=== PATIENT | male | born 1950 | race Caucasian/White ===

== ENCOUNTER 2016-09-27 11:41 | Observation (INO) ==
[2016-09-27 13:29] VITALS: BMI 29.5
[2016-09-27 13:30] VITALS: BP 171/87; PULSE 84; O2SAT 97
[2016-09-27 13:59] VITALS: RESP 18
[2016-09-27] MEDS ORDERED: ACETAMINOPHEN 325 MG TABLET PO PRN (14:19)
[2016-09-27] MEDS ORDERED: Bisacodyl EC TAB 5 MG TABLET PO PRN (14:19)
[2016-09-27] MEDS ORDERED: DOCUSATE SODIUM 100 MG CAPSULE PO PRN (14:19)
[2016-09-27] MEDS ORDERED: SENNA + DOCUSATE TABLET PO PRN (14:19)
[2016-09-27] MEDS ORDERED: ONDANSETRON 4 MG/2 ML INJECTION IVP PRN (14:19)
[2016-09-27] MEDS ORDERED: D5-1/2NS 1,000 ML IV SCH (14:45)
--- NOTE | 2016-09-27 16:52 | Cardiology History & Physical ---
History of Present Illness Chief complaint: Chest pain with EKG abnormalities HPI: This is a 66 y/o male who was brought in today from [facility] d/t CP with EKG changes. Pt states that he has never had any CP. States that around 0700 this AM he woke and was light-headed & dizzy with some blurred vision & diaphoresis. States he had some vertigo back in March r/t some nerve damage d/ t a back injury but that this was different. Denies any SOA, palpitations, N/V. States that he tried laying down to see if his symptoms improved and once he tried to get up and lost his balance his brought him into the ER. States h/ o AFIB from 22 years ago for which he has been on digoxin and a baby ASA. While in ER work-up was completed and RN states first troponin negative, CXR unremarkable, CT-chest unremarkable and EKG shows RBBB which is new from EKG in March. 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 States that his dig level was checked in the ER and was WNL. Denies any h/o HTN, CAD, h/o smoking/tobacco use. States last lipid panel in April was WNL. Pt does state that he was dx with NIDDM in March of this year and was started on metformin. Review of Systems - Constitutional Constitutional: Absent: chills, fatigue, fever(s), weakness - EENMT Eyes: Present: blurry vision. Absent: loss of vision Balance: Present: vertigo - Cardiovascular Cardiovascular: Absent: chest pain, palpitations, edema Cardiovascular Comments: near syncope - Respiratory Respiratory: Absent: cough, dyspnea, dyspnea on exertion, wheezing - Gastrointestinal Gastrointestinal: Absent: abdominal pain, constipation, nausea, vomiting - Genitourinary Genitourinary: Absent: difficulty urinating, dysuria, urinary frequency - Musculoskeletal Musculoskeletal: Present: back pain. Absent: abnormal gait, muscle weakness - Neurological Neurological: Present: dizziness, vertigo. Absent: confusion, weakness - Psychiatric Psychiatric: Absent: anxiety, depression PFS Patient Stated Medical History Peripheral Neuropathy Yes: fromconcussion Cataracts Yes: had surgery Cardiac Arrhythmia Yes: afib Diabetes Mellitus Type 2 Yes Medical History Updates: NIDDM. AFIB. 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 Surgical History: Abdominal hernia repair December & January 2016 Family History: No known CAD - Social History Smoking status: Never smoker Medications Home Medications Medication Instructions Recorded Confirmed Type Aspirin 81 mg PO DAILY #0 10/31/11 09/27/16 History Digoxin 250 mcg PO DAILY #0 10/31/11 09/27/16 History Garlic [Garlic Oil] 1,000 mg PO DAILY #0 10/31/11 09/27/16 History Multivitamin W-Minerals/Lutein 1 each PO DAILY #0 10/31/11 09/27/16 History (Centrum Silver Ultra Men's Tab) [place]-3 Fatty Acids/Fish Oil (Fish 1 each PO DAILY #0 10/31/11 09/27/16 History Oil 1,200 Mg Softgel) Metformin PO DAILY 09/27/16 History Allergies Allergy/AdvReac Type Severity Reaction Status Date / Time No Known Allergies Allergy Verified 09/27/16 13:27 Exam Vital signs: Pulse Rate 84 09/27/16 16:02 Respiratory Rate 18 09/27/16 13:30 Blood Pressure 171/87 H 09/27/16 13:30 Pulse Oximetry 97 09/27/16 13:30 Oxygen Delivery Method Room Air - Constitutional no acute distress, cooperative - Routine HEENT Exam Head: Present: normocephalic Eye: Present: EOMI ENT: Present: mucous membranes moist - Routine Neck Exam Present: JVD. Absent: carotid bruit, lymphadenopathy - Routine Respiratory Exam Present: CTA bilaterally. Absent: dyspnea, respiratory distress, wheezes - Routine Cardiovascular Exam Present: RRR, no murmur. Absent: gallop, rubs, JVD - Routine Abdominal Exam Present: soft, normoactive bowel sounds, non distended - Routine Extremities Exam Present: no edema, non tender, pulses intact - Routine Back/Spine/Pelvis Exam Back/Spine: Present: full ROM - Routine Skin Exam Present: intact, dry, warm. Absent: wounds, rash - Routine Neurological Exam Present: alert, oriented X3 - Routine Psychiatric Exam Present: normal affect, normal thought process, cooperative Results Intake and Output 09/27/16 09/27/16 09/27/16 06:59 14:59 22:59 Other: Weight 101.3 kg Patient Weight 09/28/16 06:59 Weight 101.3 kg Lab from [facility]: CBC: Wbc 6.7, Hgb 15.5, Hct 43.7, Plt 272 BMP: Na+ 139, K+ 4.1, Chl 102, CO2 27, BUN 16, Flag Car Driver 0.95, Glucose 122 - Imaging and Cardiology EKG results: report reviewed - EKG Interpretation EKG: sinus rhythm (w/RBBB) EKG interpretations - EKG EKG results cardiology: sinus rhythm Hospital Course This is a general summary of the patient's hospital course. For more details refer to the complete medical record. Time spent with patient: 25 - 35 minutes DVT Prophylaxis: SCD's Assessment and Plan (1) Dizziness Problem details: Dizziness resolved since this AM. Mag WNL at 2.2 as well as TSH at 1.01. Remains NSR 70-80's on tele. reviewed EKG which showed RBBB & ECHO which was unremarkable. Will place Holter monitor at f/u appointment. Instructed to stay out of heat and stay hydrated. Status: Acute NSR HR 70-80's. Negative CP. Troponin x1 negative. Othostatic BP's negative. Electrolytes WNL. Dig level 0.42. Will keep NPO until 2nd troponin result.Check TSH & Mag. (2) HTN (hypertension) Problem details: BP remains elevated. Start Norvasc 5mg daily. First dose now and script sent to pharmacy. Pt to bring BP diary to f/u appointment. Status : Acute BP elevated with SBP 160's. Pt denies any h/o HTN. Will con't to monitor. (3) Chronic a-fib Problem details: Con't digoxin and baby ASA. Will place a holter monitor at f/u appointment. Status: Chronic Currently in NSR. States has remained in NSR since first dx 22 years ago. Con't current digoxin and 81mg ASA. Monitor on tele. (4) Diabetes mellitus Problem details: Resume Metformin. PCP tin. Status: Chronic BG 86. Ordered D5 1/2 while NPO. Monitor BG. Will resume metformin once resume PO intake. - Attestation Attestation Narrative: 10/01/16 09:47 Recommendation After examining the patient I agree with the above assessment. I am involved in the formulation of the patient's plan of care. Sepsis Assessment - Evaluation Sepsis screening result: No Definite Risk
[2016-09-27] MEDS ORDERED: AMLODIPINE 5 MG TABLET PO SCH (17:26)
--- NOTE | 2016-09-27 18:00 | Discharge Summary ---
<Yasemin Kulkarni R - Last Filed: 09/30/16 11:58> Discharge Information Date of admission: 09/27/16 13:15 Anticipated date of discharge: 09/27/16 Attending Physician: Domingo Meade MD Primary care physician: Arpan Ley Consults: None - Discharge Diagnosis (1) Dizziness Problem Details: Dizziness resolved since this AM. Mag WNL at 2.2 as well as TSH at 1.01. Remains NSR 70-80's on tele. reviewed EKG which showed RBBB & ECHO which was unremarkable. Will place Holter monitor at f/u appointment. Instructed to stay out of heat and stay hydrated. Status: Acute (2) Chronic a-fib Problem Details: Con't digoxin and baby ASA. Will place a holter monitor at f/u appointment. Status: Chronic (3) Diabetes mellitus Problem Details: Resume Metformin. PCP manges. Status: Chronic (4) HTN (hypertension) Problem Details: BP remains elevated. Start Norvasc 5mg daily. First dose now and script sent to pharmacy. Pt to bring BP diary to f/u appointment. Status : Acute History of Present Illness HPI: 09/30/16 11:58 This is a 66 y/o male who was brought in today from [facility] d/t CP with EKG changes. Pt states that he has never had any CP. States that around 0700 this AM he woke and was light-headed & dizzy with some blurred vision & diaphoresis. States he had some vertigo back in March r/t some nerve damage d/ t a back injury but that this was different. Denies any SOA, palpitations, N/V. States that he tried laying down to see if his symptoms improved and once he tried to get up and lost his balance his brought him into the ER. States h/ o AFIB from 22 years ago for which he has been on digoxin and a baby ASA. While in ER work-up was completed and RN states first troponin negative, CXR unremarkable, CT-chest unremarkable and EKG shows RBBB which is new from EKG in March. 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 States that his dig level was checked in the ER and was WNL. Denies any h/o HTN, CAD, h/o smoking/tobacco use. States last lipid panel in April was WNL. Pt does state that he was dx with NIDDM in March of this year and was started on metformin. Hospital Course This is a general summary of the patient's hospital course. For more details refer to the complete medical record. Time spent with patient: 25 - 35 minutes DVT Prophylaxis: SCD's Exam Vital signs: Pulse Rate 84 09/27/16 16:02 Respiratory Rate 18 09/27/16 13:30 Blood Pressure 171/87 H 09/27/16 13:30 Pulse Oximetry 97 09/27/16 13:30 Oxygen Delivery Method Room Air - Constitutional no acute distress, well developed, cooperative - Routine HEENT Exam Head: Present: normocephalic Eye: Present: EOMI ENT: Present: mucous membranes moist - Routine Neck Exam Absent: JVD, carotid bruit, lymphadenopathy - Routine Respiratory Exam Present: CTA bilaterally. Absent: dyspnea, respiratory distress, wheezes, crackles - Routine Cardiovascular Exam Present: RRR, no murmur. Absent: gallop, rubs, JVD - Routine Abdominal Exam Present: soft, normoactive bowel sounds, non distended - Routine Extremities Exam Present: no edema, non tender, full ROM, pulses intact - Routine Back/Spine/Pelvis Exam Back/Spine: Present: full ROM - Routine Skin Exam Present: intact, dry, warm. Absent: wounds, rash - Routine Neurological Exam Present: alert, oriented X3 - Routine Psychiatric Exam Present: normal affect, normal thought process, cooperative, good judgment Results Cardiac Enzymes 09/27/16 Range/Units 16:23 Troponin I < 0.012 (0-0.12) ng/ml Intake and Output 09/27/16 09/27/16 09/27/16 06:59 14:59 22:59 Output Total 350 / 350 Balance -350 / -350 Output: Urine 350 / 350 Other: Weight 101.3 kg Patient Weight 09/28/16 06:59 Weight 101.3 kg TSH 1.01 Mag 2.2 - Imaging and Cardiology Echo: report reviewed Imaging & Cardiology Narrative: 09/30/16 12:05 Date of Exam: 09/27/16 Type of Exam(s): US echo doppler complete DATE OF PROCEDURE September 27, 2016 This is a two-dimensional echo with spectral Doppler, color-flow and M-mode. It was obtained in a patient with abnormal EKG. Left atrial dimension is normal. Left ventricular end-diastolic dimension is normal. Left ventricular wall thickness is normal. LV systolic function is normal with ejection fraction of 63%. Right atrium is normal. Right ventricle is normal. Aortic root dimension is normal. Mitral, aortic, tricuspid, and pulmonary valves are morphologically normal with trace of mitral and trace of tricuspid regurgitation with normal estimated pulmonary artery systolic pressure of 27. Pulmonary valve shows no pulmonary insufficiency. There is no pericardial effusion. IMPRESSION 1. Normal LV systolic function with ejection fraction of 63%. 2. Trace of mitral regurgitation. 3. Trace of tricuspid regurgitation with normal estimated pulmonary artery systolic pressure of 27. Discharge Plan - Med Rec/Dispo Referrals/Follow Up: Domingo Meade MD [Physician] - 2 Weeks (F/u in 2 weeks for holter monitor and with BP journal.) [place] Instructions: Angina (DC) Additional Instructions: Take your BP a few times every week and write them down and take with you to your appointment in 2 weeks. Prescriptions: New Amlodipine [Norvasc] 5 mg PO DAILY #30 tablet Continue Digoxin 250 mcg PO DAILY #0 Multivitamin W-Minerals/Lutein (Centrum Silver Ultra Men's Tab) 1 each PO DAILY #0 Aspirin 81 mg PO DAILY #0 [place]-3 Fatty Acids/Fish Oil (Fish Oil 1,200 Mg Softgel) 1 each PO DAILY #0 Garlic [Garlic Oil] 1,000 mg PO DAILY #0 Metformin PO DAILY Discharge Instructions/Outpatient Orders: Final Provider Discharge Instructions Location: Determined By Patient - Disposition 01 Discharged Home, Self-Care <Domingo Meade - Last Filed: 10/01/16 09:48> Discharge Information Date of admission: 09/27/16 13:15 Attending Physician: Domingo Meade MD Primary care physician: Arpan Ley - Discharge Diagnosis (1) Dizziness Problem Details: Dizziness resolved since this AM. Mag WNL at 2.2 as well as TSH at 1.01. Remains NSR 70-80's on tele. reviewed EKG which showed RBBB & ECHO which was unremarkable. Will place Holter monitor at f/u appointment. Instructed to stay out of heat and stay hydrated. Status: Acute (2) HTN (hypertension) Problem Details: BP remains elevated. Start Norvasc 5mg daily. First dose now and script sent to pharmacy. Pt to bring BP diary to f/u appointment. Status : Acute (3) Chronic a-fib Problem Details: Con't digoxin and baby ASA. Will place a holter monitor at f/u appointment. Status: Chronic (4) Diabetes mellitus Problem Details: Resume Metformin. PCP manges. Status: Chronic Hospital Course This is a general summary of the patient's hospital course. For more details refer to the complete medical record. Exam Vital signs: Pulse Rate 84 09/27/16 16:02 Respiratory Rate 18 09/27/16 13:30 Blood Pressure 171/87 H 09/27/16 13:30 Pulse Oximetry 97 09/27/16 13:30 Oxygen Delivery Method Room Air Results Lipids 09/27/16 Range/Units 16:23 Triglycerides 441 H (40-160) MG/DL Cholesterol 214 H (132-199) MG/DL HDL Cholesterol 35 L (40-60) MG/DL Cholesterol/HDL Ratio 6.1 H (0-5.0) RATIO Discharge Plan - Med Rec/Dispo - Attestation Attestation Narrative: 10/01/16 09:47 Recommendation After examining the patient I agree with the above assessment. I am involved in the formulation of the patient's plan of care.
[2016-09-28] MEDS ORDERED: OMEGA-3 ACID ESTERS 1 GM CAPSULE PO SCH (09:00)
[2016-09-28] MEDS ORDERED: MULTI-VITAMIN + MINERAL TABLET PO SCH (09:00)
[2016-09-28] MEDS ORDERED: GARLIC 1000 MG PO SCH (09:00)
[2016-09-28] MEDS ORDERED: ASPIRIN 81 MG CHEWABLE TABLET PO SCH (09:00)
[2016-09-28] MEDS ORDERED: DIGOXIN 250 MCG TABLET PO SCH (09:00)
--- NOTE | 2016-09-28 14:06 | Echocardiogram ---
DATE OF PROCEDURE September 27, 2016 This is a two-dimensional echo with spectral Doppler, color-flow and M-mode. It was obtained in a patient with abnormal EKG. Left atrial dimension is normal. Left ventricular end-diastolic dimension is normal. Left ventricular wall thickness is normal. LV systolic function is normal with ejection fraction of 63%. Right atrium is normal. Right ventricle is normal. Aortic root dimension is normal. Mitral, aortic, tricuspid, and pulmonary valves are morphologically normal with trace of mitral and trace of tricuspid regurgitation with normal estimated pulmonary artery systolic pressure of 27. Pulmonary valve shows no pulmonary insufficiency. There is no pericardial effusion. IMPRESSION 1. Normal LV systolic function with ejection fraction of 63%. 2. Trace of mitral regurgitation. 3. Trace of tricuspid regurgitation with normal estimated pulmonary artery systolic pressure of 27. MTDD
== END 2016-09-27 18:30 | disposition home or self-care (01) ==
LOC: MED
PROVIDERS: ADMIT Internal Medicine Cardiovascular Disease; ATTEND Internal Medicine Cardiovascular Disease